=== PATIENT | female | born 1980 | race American Indian/Alaskan Native ===

== ENCOUNTER 2017-05-10 02:56 | Emergency (ER) | payer BC ==
[2017-05-10 03:10] VITALS: BP 123/55
[2017-05-10] MEDS ORDERED: NORCO 5/325 PO ONE (04:20)
--- NOTE | 2017-05-10 04:25 | Emergency Department Report ---
HPI - General Chief Complaint: Dental/Oral Time Seen by Provider: 05/10/17 04:04 - HPI HPI: Patient here reports that she is having in tooth ache to left upper tooth and facial area 2 days. She [place] Patient denies any fever or chills. Denies any nausea or vomiting. Denies any facial swelling. Pain is 10 out of 10 and achy and [id number] medication did not help. ED Past Medical Hx - Past Medical History Previous Medical History?: No - Surgical History Past Surgical History?: Yes Additional Surgical History: D&C, Illeostomy,Bilateral Breast Reduction - Family History Family history: no significant - Social History Smoking Status: Current Every Day Smoker Substance Use Type: None - Medications Home Medications: Home Medications Medication Instructions Recorded Confirmed Last Taken Type Acetaminophen/Codeine [Tylenol 1 tab PO Q6H PRN #20 tab 05/10/17 Unknown Rx /Codeine # 3 tab] Amoxicillin [Amoxicillin TAB] 875 mg PO BID #20 tablet 05/10/17 Unknown Rx Ibuprofen [Motrin] 600 mg PO Q8H PRN #15 tablet 05/10/17 Unknown Rx ED Review of Systems ROS: Stated complaint: TOOTHACHE Other details as noted in HPI Comment: All other systems reviewed and negative Constitutional: denies: chills, fever ENT: dental pain. denies: ear pain, throat pain, congestion Respiratory: no symptoms reported Cardiovascular: denies: chest pain, palpitations, edema, syncope Gastrointestinal: denies: abdominal pain, nausea, vomiting Musculoskeletal: denies: back pain, joint swelling, arthralgia, myalgia Skin: denies: rash Neurological: denies: headache, weakness, numbness, paresthesias Physical Exam - Physical Exam Vital Signs: Vital Signs 05/10/17 03:04 Temperature 97.9 F Pulse Rate 67 Respiratory 12 Rate Blood Pressure 123/55 Blood Pressure 123/55 [Left] O2 Sat by Pulse 100 Oximetry General: This is a 37-year-old female well-nourished well-developed in no acute distress. Physical Exam: Head: Normocephalic atraumatic Mouth: Moist, no pharyngeal exudate or erythema. Uvula is midline and oral airway is patent. No gingival enlargement or dental tenderness. No facial swelling. No peritonsillar abscesses. Patient with some dental caries, no cellulitic or indurated area noted to oral mucosa. Noted broken tooth to left 15 and 16 Neck: Supple, no C-spine tenderness, no tracheal deviation. Nontender to palpate. no adenopathy Ears: Bilateral TMs pearly bush .bilateral EAC without any redness swelling or drainage Eyes: Bilateral pupils equal and reactive to light, bilateral EOM intact. Bilateral sclera and conjunctiva without injection. Normal accommodation Nose: Mucosa moist, Normal mucosa maxillary and frontal sinus non-tender to palpate. Lungs: Clear to auscultate bilaterally no rhonchi wheezes or rales. Normal work of breathing extremity; No CCE. +2 pulses. No neurovascular compromise Cardiovascular: S1-S2, regular rate rhythm. No murmurs. Skin: clean Dry and intact no rash no lesions Psych: Normal mood and behavior ED Course Vital Signs 05/10/17 03:04 Temperature 97.9 F Pulse Rate 67 Respiratory 12 Rate Blood Pressure 123/55 Blood Pressure 123/55 [Left] O2 Sat by Pulse 100 Oximetry - Reevaluation(s) Reevaluation #1: 05/10/17 04:25 Patient given [place] 5/325 2 tablets in emergency room for toothache ED Medical Decision Making - Medical Decision Making ED course: I explained to patient that she will need to schedule appointment to see her doctor in [place] when she goes back on . She was given [place] 5/ 325 2 tablets in emergency room for pain. Patient with fractured tooth, dental caries and toothache. Patient discharged home in stable condition with prescription for Tylenol 3 and amoxicillin Critical care attestation.: If time is entered above; I have spent that time in minutes in the direct care of this critically ill patient, excluding procedure time. ED Disposition Clinical Impression: Tooth ache, Dental caries Tooth fractures Qualifiers: Encounter type: initial encounter Fracture type: closed Qualified Code(s): S02.5XXA - Fracture of tooth (traumatic), initial encounter for closed fracture Disposition: TO HOME OR SELFCARE Is pt being admited?: No Does the pt Need Aspirin: No Condition: Stable Instructions: Dental Caries (ED), Toothache (ED) Additional Instructions: Please do not drive or operate heavy machinery while taking Tylenol 3 this medication will cause drowsiness call Dentist office next week to schedule an appointment for follow-up visit dental caries, toothache and tooth fracture Please take antibiotic as prescribed. Prescriptions: Acetaminophen/Codeine [Tylenol /Codeine # 3 tab] 1 tab PO Q6H PRN #20 tab PRN Reason: Toothache Amoxicillin [Amoxicillin TAB] 875 mg PO BID #20 tablet Ibuprofen [Motrin] 600 mg PO Q8H PRN #15 tablet PRN Reason: Pain Referrals: Your, Dentist [Other] - 05/14/17 Forms: Work/School Release Form(ED)
== END 2017-05-10 04:40 | disposition home or self-care (01) ==
LOC: ED 02:56
DX: K02.9 Dental caries, unspecified (principal); S02.5XXA Fracture of tooth (traumatic), initial encounter for closed fracture; F17.210 Nicotine dependence, cigarettes, uncomplicated; X58.XXXA Exposure to other specified factors, initial encounter; Y93.89 Activity, other specified; Y92.89 Other specified places as the place of occurrence of the external cause; Y99.8 Other external cause status
CPT/HCPCS: 99282

== ENCOUNTER 2018-04-08 13:30 | Emergency (ER) | payer SELFPAY ==
[2018-04-08 13:55] VITALS: BP 113/73
[2018-04-08] MEDS ORDERED: FUL-GLO OP ONE (17:27)
--- NOTE | 2018-04-08 17:34 | Emergency Department Report ---
Eye Injury/Foreign Body - HPI Duration: 3 Days Eye Location: Right Severity: Mild Tetanus Status: Up to Date Eye Symptoms: Eye Pain: Yes, Blurred Vision: No, Eye Redness: Yes, Grinding/ Hammering Metal: No, Used Eye Protection: No, Contact Lens Use: No, Recalls Injury: No, Photophobia: Yes Other History: 38-year-old female past medical history obesity presents with complaint of 2-3 days of right eye redness and irritation with slight discharge. Patient denies any direct trauma to the eye. Denies any floaters. Overall vision intact the patient states that her eyes very watery and irritated. To her knowledge she has not had any contact with anyone with conjunctivitis lately. Tetanus vaccine status up-to-date. ED Review of Systems ROS: Stated complaint: PAIN IN EYES Other details as noted in HPI Constitutional: denies: chills, fever Eyes: eye pain, eye discharge. denies: vision change ENT: denies: ear pain, throat pain Respiratory: denies: cough, shortness of breath, wheezing Cardiovascular: denies: chest pain, palpitations Endocrine: no symptoms reported Gastrointestinal: denies: abdominal pain, nausea, diarrhea Genitourinary: denies: urgency, dysuria, discharge Musculoskeletal: denies: back pain, joint swelling, arthralgia Skin: denies: rash, lesions Neurological: denies: headache, weakness, paresthesias Psychiatric: denies: anxiety, depression Hematological/Lymphatic: denies: easy bleeding, easy bruising ED Past Medical Hx - Past Medical History Previous Medical History?: No - Surgical History Past Surgical History?: Yes Additional Surgical History: D&C, Illeostomy,Bilateral Breast Reduction - Social History Smoking Status: Current Every Day Smoker Substance Use Type: None - Medications Home Medications: Home Medications Medication Instructions Recorded Confirmed Last Taken Type Acetaminophen/Codeine [Tylenol 1 tab PO Q6H PRN #20 tab 05/10/17 Unknown Rx /Codeine # 3 tab] Amoxicillin [Amoxicillin TAB] 875 mg PO BID #20 tablet 05/10/17 Unknown Rx Ibuprofen [Motrin] 600 mg PO Q8H PRN #15 tablet 05/10/17 Unknown Rx Ibuprofen [Motrin] 800 mg PO Q8HR PRN #20 tablet 04/08/18 Unknown Rx Tobramycin 0.3% [Tobrex] 1 drop OD Q4H #1 bottle 04/08/18 Unknown Rx Eye Injury Exam - Exam General: Vital signs noted. No distress. Alert and acting appropriately. - Visual Acuity Right Vision Acuity Degree: 20/20 Eye Exam: Right Injection, Right Mucous Discharge, Both EOMI, Neither Chemosis, Neither Abnormal Pupil, Neither Fluorescein Uptake ED Course Vital Signs 04/08/18 13:51 Temperature 98 F Pulse Rate 93 H Respiratory 16 Rate Blood Pressure 113/73 O2 Sat by Pulse 98 Oximetry ED Medical Decision Making - Medical Decision Making A/P: Conjunctivitis right eye 1-tobramycin drops right eye 2-Motrin when necessary 3-follow-up with ophthalmology 4-in 20/20 left eye 20/25 right eye. No uptake on fluorescein exam Critical care attestation.: If time is entered above; I have spent that time in minutes in the direct care of this critically ill patient, excluding procedure time. ED Disposition Clinical Impression: Conjunctivitis Qualifiers: Conjunctivitis type: acute Acute conjunctivitis type: unspecified Laterality: right Qualified Code(s): H10.31 - Unspecified acute conjunctivitis, right eye Disposition: DC-01 TO HOME OR SELFCARE Is pt being admited?: No Does the pt Need Aspirin: No Condition: Stable Instructions: Conjunctivitis (ED) Prescriptions: Ibuprofen [Motrin] 800 mg PO Q8HR PRN #20 tablet PRN Reason: Pain Tobramycin 0.3% [Tobrex] 1 drop OD Q4H #1 bottle Referrals: MACKENZIE AMEZQUITA MD [Staff Physician] - 3-5 Days Forms: Accompanied Note, Work/School Release Form(ED) Time of Disposition: 17:37
== END 2018-04-08 17:48 | disposition home or self-care (01) ==
LOC: ED 13:30
DX: H10.9 Unspecified conjunctivitis (principal); F17.200 Nicotine dependence, unspecified, uncomplicated
CPT/HCPCS: 99282